=== PATIENT | male | born 1995 | race African-American/Black ===

== ENCOUNTER 2017-12-13 02:01 | Emergency (ER) | payer SELFPAY ==
[~2017-12-13] VITALS: Ht 185.4 cm; Wt 96.2 kg
[2017-12-13 03:06] LABS: Basophils # (auto) 0 uL; Basophils % (auto) 0.4 % (0.0-2.0); Eosinophils # (auto) 0.1 uL; Hematocrit 42.1 % (41.0-53.0); Hemoglobin 14.2 g/dL (13.5-17.5); Mean Corpuscular Hemoglobin 29.3 pg (28.0-32.0); Mean Corpuscular Hgb Conc. 33.8 g/dL (32.0-36.0); Mean Corpuscular Volume 86.6 fL (80.0-100.0); Monocytes # (auto) 0.6 uL; Monocytes % (auto) 12.6 % (0.0-12.0); Neutrophils # (auto) 2.4 uL; Nucleated Red Blood Cells % 0.1 %; Platelet Count (auto) 215 10^3/uL (140-450); Red Blood Cells 4.86 10^6/uL (4.5-5.90); Red Cell Distribution Width 14.2 % (11.8-14.3)
[2017-12-13 03:32] LABS: BUN/Creatinine Ratio 16.1; Potassium 3.5 mmol/L (3.5-5.1)
[2017-12-13 03:33] LABS: Albumin 4.2 g/dL (3.4-5.0); Bilirubin, Total 0.3 mg/dL (0.2-1.0); Calcium 9.4 mg/dL (8.5-10.1); Total Protein 8.7 g/dL (6.4-8.2)
[2017-12-13 08:40] LABS: Urine Bacteria NONE SEEN /hpf (None Seen); Urine Blood Negative /uL (Negative); Urine Specific Gravity 1.007 (1.001-1.035); Urine WBC 3 /hpf (0 - 3)
[2017-12-13] MEDS ORDERED: SODIUM CHLORIDE 0.9% 1,000 ML IV ONE (08:40)
[2017-12-13] MEDS ORDERED: LORazepam 2MG/ML-1ML VIAL IV ONE (08:45)
[2017-12-13 08:58] LABS: Alcohol, Urine < 3.0 mg/dL (0-5); Amphetamine Screen, Urine NEGATIVE (NEGATIVE); Barbiturate Scree,Urine NEGATIVE (NEGATIVE); Benzodiazephine Screen, Urine NEGATIVE (NEGATIVE); Cannabinoid Screen, Urine NEGATIVE (NEGATIVE); Cocaine Screen, Urine NEGATIVE (NEGATIVE); Opiate Scree,Urine NEGATIVE (NEGATIVE); Phencyclidine Screen, Urine NEGATIVE (NEGATIVE)
[2017-12-13 12:23] VITALS: BP 138/86
== END 2017-12-13 12:54 | disposition home or self-care (01) ==
LOC: EDBD 02:01 → ER 02:07
DX: F31.9 Bipolar disorder, unspecified (principal); M79.1 Myalgia
CPT/HCPCS: 36415; 80053; 80307; 81001; 83735; 85025; 96361; 96374; 99284; J2060